=== PATIENT | female | born 2000 | race Caucasian/White ===

== ENCOUNTER 2020-12-16 11:30 | Emergency (ER) | payer OTHER ==
[~2020-12-16 11:30] MED LIST: AUGMENTIN 875-1 EACH PO; COLACE 100MG C100 MG PO; IBUPROFEN600 MG PO; LORTAB 5-325 M1 EACH PO; NORFLEX 100 MG100 MG PO; PREDNISONE 50 M50 MG PO; SENNA LAX8.6 MG PO; SENNA-DOCUSATE1 EACH PO; ZOFRAN4 MG PO
[2020-12-16] MEDS ORDERED: PYRIDIUM200 MG PO (12:26)
[2020-12-16] MEDS ORDERED: OMNICEF 300 MG300 MG PO (12:26)
== END 2020-12-16 12:35 | disposition home or self-care (01) ==
LOC: ER1 11:30
DX: N39.0 Urinary tract infection, site not specified (principal); Z90.89 Acquired absence of other organs
CPT/HCPCS: 81001; 84703; 87086; 99283

== ENCOUNTER 2021-03-29 10:25 | Emergency (ER) | payer OTHER ==
[~2021-03-29 10:25] MED LIST changes: +OMNICEF 300 MG300 MG PO; +PYRIDIUM200 MG PO
[2021-03-29 11:56] LABS: HEMOGLOBIN 14.2 gm/dl (12.3-15.3); RED BLOOD COUNT 4.73 M/UL (4.00-5.10); WHITE BLOOD COUNT 6.8 K/UL (4.5-11.0)
[2021-03-29 12:23] LABS: BUN/CREATININE RATIO 16 (0-10)
== END 2021-03-29 15:00 | disposition home or self-care (01) ==
LOC: ER1 10:25
PROVIDERS: Nurse Practitioner
DX: O99.891 Other specified diseases and conditions complicating pregnancy (principal); R10.9 Unspecified abdominal pain; R10.813 Right lower quadrant abdominal tenderness; R10.814 Left lower quadrant abdominal tenderness; Z3A.01 Less than 8 weeks gestation of pregnancy
CPT/HCPCS: 76817; 80053; 81001; 84702; 84703; 85025; 87086; 99284

== ENCOUNTER 2021-04-27 16:42 | Emergency (ER) | payer OTHER ==
[2021-04-27 19:31] LABS: HEMOGLOBIN 13.8 gm/dl (12.3-15.3); RED BLOOD COUNT 4.54 M/UL (4.00-5.10); WHITE BLOOD COUNT 12.3 K/UL (4.5-11.0)
[2021-04-27 20:11] LABS: BUN/CREATININE RATIO 17 (0-10)
[2021-04-27] MEDS ORDERED: ZOFRAN ODT 4 MG4 MG SL (23:05)
[2021-04-27] MEDS ORDERED: HYDROCODON-ACE1 EAC4 PO (23:05)
== END 2021-04-27 23:10 | disposition home or self-care (01) ==
LOC: ER1 16:42
PROVIDERS: Physician Assistant Medical
DX: O03.9 Complete or unspecified spontaneous abortion without complication (principal); Z3A.01 Less than 8 weeks gestation of pregnancy
CPT/HCPCS: 76801; 80053; 81001; 84702; 85025; 86900; 86901; 87086; 99284

== ENCOUNTER → 2021-05-02 | Day surgery (SDC) | payer OTHER ==
[~2021-05-02] MED LIST changes: +HYDROCODON-ACE1 EAC4 PO; +ZOFRAN ODT 4 MG4 MG SL
[2021-05-02 07:11] LABS: HEMOGLOBIN 12.5 gm/dl (12.3-15.3); RED BLOOD COUNT 4.19 M/UL (4.00-5.10); WHITE BLOOD COUNT 7.3 K/UL (4.5-11.0)
== END | disposition home or self-care (01) ==
LOC: OR 05:38
PROVIDERS: Obstetrics & Gynecology
DX: O02.0 Blighted ovum and nonhydatidiform mole (principal); O03.9 Complete or unspecified spontaneous abortion without complication; Z20.822 Contact with and (suspected) exposure to COVID-19
CPT/HCPCS: 36415; 81001; 85025; J1100; J2250; J2405; J2704; J2795; J3010; J7030; J7120; U0002

== ENCOUNTER 2021-12-21 13:33 | Emergency (ER) | payer OTHER ==
[2021-12-21 14:24] LABS: HEMOGLOBIN 13.6 gm/dl (12.3-15.3); RED BLOOD COUNT 4.64 M/UL (4.00-5.10); WHITE BLOOD COUNT 12.3 K/UL (4.5-11.0)
[2021-12-21 15:10] LABS: BUN/CREATININE RATIO 16 (0-10)
[2021-12-21] MEDS ORDERED: MACROBID 100 M100 MG PO (17:10)
[2021-12-21] MEDS ORDERED: ZOFRAN ODT 4 MG4 MG PO (17:10)
== END 2021-12-21 17:42 | disposition home or self-care (01) ==
LOC: ER1 13:33
PROVIDERS: Student in an Organized Health Care Education/Training Program
DX: O21.9 Vomiting of pregnancy, unspecified (principal); O23.41 Unspecified infection of urinary tract in pregnancy, first trimester; N39.0 Urinary tract infection, site not specified; Z3A.12 12 weeks gestation of pregnancy
CPT/HCPCS: 80053; 81001; 84702; 85025; 87086; 96374; 96375; 99284; J2550